=== PATIENT | female | born 1935 | race Caucasian/White ===

== ENCOUNTER 2019-05-28 10:56 | Inpatient (IN) ==
[2019-05-28] MEDS ORDERED: LEVAQUIN 500 MG/D5W 500 MG/100 ML IVPB IV SCH (12:00)
[2019-05-28 12:02] LABS: URINE SOURCE CATH
[2019-05-28 12:05] LABS: BASO# 0.01 X1000 (0.0-0.2); BASO% 0.2 % (0.0-0.8); EOS# 0.03 X1000 (0.0-0.7); EOS% 0.5 % (0.0-10.0); HEMATOCRIT 40.7 % (37.0-47.0); HEMOGLOBIN 12.9 g/dL (12.0-16.0); LYMPH# 0.47 X1000 (1.2-3.4); LYMPH% 7.8 % (20.5-51.1); MCH 33.8 PG (27-31); MCHC 31.7 g/dL (33-37); MCV 106.5 FL (81-99); MONO% 8.3 % (1.7-9.3); MPV 11.1 FL (7.4-10.4); NEUT# 4.99 X1000 (1.4-6.5); NEUT% 83.2 % (42.2-75.2); PLT 183 X1000 (130-400); RBC 3.82 XMIL (4.2-5.4); RDW 13.9 % (11.5-14.5)
[2019-05-28 12:07] LABS: BILIRUBIN URINE NEGATIVE (NEGATIVE); BLOOD URINE NEGATIVE (NEGATIVE); COLOR STRAW; GLUCOSE URINE TRACE mg/dL (NEGATIVE); KETONE URINE NEGATIVE (NEGATIVE); LEUKOCYTES URINE NEGATIVE (NEGATIVE); NITRITE URINE NEGATIVE (NEGATIVE); PH URINE 7.5; PROTEIN URINE TRACE mg/dL (NEGATIVE); SP GRAVITY URINE 1.009; TURBIDITY URINE CLEAR (CLEAR); UROBILINOGEN URINE NORMAL (NORMAL)
[2019-05-28] MEDS ORDERED: TYLENOL PO PRN (12:08)
[2019-05-28] MEDS ORDERED: NS 1,000 ML IV SCH (12:08)
[2019-05-28] MEDS ORDERED: PHENERGAN IV PRN (12:08)
[2019-05-28] MEDS ORDERED: SODIUM CHLORIDE 0.9% INJ PRN (12:08)
[2019-05-28 12:09] LABS: UR EPITHELIAL CELLS <10 /HPF (<10); URINE BACTERIA NEGATIVE /HPF; URINE RBC <10 /HPF (<10); URINE WBC <10 /HPF (<10)
[2019-05-28] MEDS: LEVAQUIN 500 MG/D5W 500 MG/100 ML IVPB IV SCH (12:14)
[2019-05-28 12:19] LABS: CALCIUM 9.7 mg/dL (8.8-10.2); CREATININE 0.9 mg/dL (0.5-0.9); POTASSIUM 4.1 mmol/L (3.5-5.1)
[2019-05-28] MEDS ORDERED: TOBRAMYCIN IV ONE (13:00)
[2019-05-28] MEDS ORDERED: NS IV ONE (13:00)
[2019-05-28] MEDS: NEURONTIN PO SCH ×2 (15:46→21:17)
[2019-05-28] MEDS: PULMICORT INH SCH (19:55)
[2019-05-28] MEDS: FISH OIL CONCENTRATE PO SCH (21:16)
[2019-05-28] MEDS: ELIQUIS PO SCH (21:16)
[2019-05-28] MEDS: NAMENDA PO SCH (21:17)
[2019-05-28] MEDS: MIRALAX PO SCH (21:17)
[2019-05-28] MEDS: RESTASIS 0.05% OPH DROPS BOTH EYES SCH (21:17)
--- NOTE | 2019-05-28 21:42 | HISTORY AND PHYSICAL ---
CHIEF COMPLAINT: Confusion. HISTORY OF PRESENT ILLNESS: Mrs. 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 She presented to the ER with a 2-day history of confusion, disorientation and increased lethargy. Family reported that she had been having increasing dysuria, increased frequency of urination, leakage of urine, and low back pain. She denied any fever, chills, nausea or vomiting. PAST MEDICAL HISTORY: Chronic atrial fibrillation, vascular dementia, hypertension, peripheral neuropathy, lumbar spinal stenosis with neurogenic claudication, gastroesophageal reflux disease. PAST SURGICAL HISTORY: Right hemicolectomy. ALLERGIES: Iodine, morphine. FAMILY HISTORY: Noncontributory. SOCIAL HISTORY: She does not smoke. She does not consume alcoholic beverages. She lives at home with her spouse. MEDICATIONS: Eliquis 2.5 mg b.i.d., atenolol 50 mg daily, Pulmicort 0.5 mg inhalation b.i.d., digoxin 125 mcg daily, Cymbalta 60 mg daily, diltiazem 180 mg daily, fexofenadine 180 mg daily, Toviaz 4 mg daily, Flonase nasal spray, gabapentin 300 mg t.i.d., Namenda 10 mg b.i.d. FAMILY HISTORY: Noncontributory. REVIEW OF SYSTEMS: She denies any recent weight gain or weight loss.HEENT: She is hard of hearing. She wears glasses. CV: No chest pain. Pulmonary: No shortness of breath. GI: No reflux, dysphagia, melena, hematochezia, change in bowel habits or rectal bleeding. Endocrine: No polyuria, no polydipsia. No cold or heat intolerance. Skin: No easy bruisability. : No leakage of urine with coughing or laughing. Neurologic: No migraines or seizures. Psychiatric: She has history of depression. This is a chronically ill-appearing 83-year-old lady who is somewhat sedated. She is oriented to name and place. Temperature 97.8 degrees, pulse 86, respiratory rate 16, BP 159/85. HEENT: Fundi with arteriolar wall thickening. Pupils equal, round, reactive to light. Extraocular eye movements intact. Neck: Supple. No masses, JVD or bruits. CV: Irregularly irregular. Lungs: Clear. Abdomen: Soft. Good bowel sounds. No hepatosplenomegaly. She has suprapubic tenderness to deep palpation. There is some distention of the bladder. Back: No CVA tenderness. Extremities: Without edema. Neuro: She is alert. She is sedated and drowsy but is easily arousable. She is oriented to name and place. Cranial nerves 2-12 intact grossly. She moves all extremities grossly. She has diminished light touch in the distal extremities bilaterally. LABS: Various laboratory studies were obtained. A CBC demonstrated a white count of 6.0, hemoglobin 12.9, hematocrit 40.7, platelet count 183,000. Electrolytes demonstrate sodium 146, potassium 4.1, BUN 16, creatinine 0.9, glucose 157. Urinalysis was grossly unremarkable. ASSESSMENT AND PLAN: 1. Metabolic encephalopathy. I suspect that she has a urinary tract infection. She has had recurrent urinary tract infections in the setting of an overactive bladder for which she takes Toviaz. I will cautiously begin normal saline at 75 mL per hour x1 L. We will begin Levaquin 500 mg IV daily and tobramycin 80 mg x1 dose pending urine and blood cultures x2. 2. Chronic atrial fibrillation. She remains in chronic atrial fibrillation. Heart rate is well controlled on metoprolol. We will continue Eliquis to reduce the risk of stroke. 3. Overactive bladder. We will continue Toviaz 4 mg daily. 4. Chronic low back pain secondary to lumbar spinal stenosis with neurogenic claudication and polyneuropathy. Given her weakness we will consult physical therapy. Given her clinical presentation and comorbid conditions I believe that it is reasonable to admit the patient to [facility] for further evaluation. I anticipate that she will be in the hospital for at least 2 midnights and I will therefore place her in inpatient status. We will continue Eliquis 2.5 mg b.i.d. for DVT prophylaxis. cc: Santos Stern MD
--- NOTE | 2019-05-29 07:30 | Diag Imaging Result Doc PS360 ---
EXAM: CHEST-PORTABLE 05/29/2019 HISTORY: HTN TECHNIQUE: AP portable supine at 0557 COMMENT: There is cardiomegaly. There is minimal interstitial opacity in the lung bases which may indicate pulmonary edema. Considering differences in inspiration and technique this has not changed since 07/16/2018. IMPRESSION: Cardiomegaly. The minimal pulmonary edema. Electronically signed by Ben Echavarria 05/29/2019 7:27 AM
[2019-05-29] MEDS: PULMICORT INH SCH ×2 (08:15→19:26)
[2019-05-29] MEDS ORDERED: TOVIAZ PO SCH (09:00)
[2019-05-29] MEDS ORDERED: TENORMIN PO SCH (09:00)
[2019-05-29] MEDS ORDERED: MIRALAX PO SCH (09:00)
[2019-05-29] MEDS: NAMENDA PO SCH ×2 (09:52→21:01)
[2019-05-29] MEDS: LANOXIN PO SCH (09:52)
[2019-05-29] MEDS: ELIQUIS PO SCH ×2 (09:52→21:01)
[2019-05-29] MEDS: FISH OIL CONCENTRATE PO SCH ×2 (09:52→21:01)
[2019-05-29] MEDS: ALLEGRA PO SCH (09:52)
[2019-05-29] MEDS: CULTURELLE PO SCH (09:52)
[2019-05-29] MEDS: CALTRATE 600 PO SCH (09:52)
[2019-05-29] MEDS: FOLIC ACID PO SCH (09:52)
[2019-05-29] MEDS: PROTONIX PO SCH (09:53)
[2019-05-29] MEDS: CARDIZEM CD PO SCH (09:53)
[2019-05-29] MEDS: CENTRUM SILVER PO SCH (09:53)
[2019-05-29] MEDS: CYMBALTA PO SCH (09:53)
[2019-05-29] MEDS: NEURONTIN PO SCH ×3 (09:53→21:01)
--- NOTE | 2019-05-29 10:30 | PROGRESS NOTE ---
DATE: 05/29/2019 SUBJECTIVE: Mrs. Mathias was admitted to [facility] with a metabolic encephalopathy secondary to suspected underlying urinary tract infection. She seems much more awake and interactive this morning. She is a oriented to name and place. She was complaining about breakfast this morning. She still has some dysuria, but less urinary frequency. She denies any fever, chills, nausea, vomiting, or low back pain. She remains in atrial fibrillation. Heart rate is well controlled on diltiazem. She has had no bleeding complications secondary to the Eliquis. OBJECTIVE: Temperature 98.1 degrees, pulse 89, respiratory rate 16, blood pressure 168/84. CV irregularly irregular. Lungs clear. Abdomen soft nontender with active bowel sounds. Back no CVA tenderness. ASSESSMENT AND PLAN: 1. Metabolic encephalopathy secondary to suspected urinary tract infection. She does have underlying vascular dementia. She is awake and easily arousable. She is oriented to name and place. We will continue IV antibiotics including Levaquin, pending cultures. Hopefully, we can transition her to oral medications soon. 2. Chronic atrial fibrillation. She remains in atrial fibrillation. Heart rate is stable on diltiazem. We will continue Eliquis 2.5 mg b.i.d. to reduce the risk of stroke. cc: Santos Stern MD
[2019-05-29] MEDS: RESTASIS 0.05% OPH DROPS BOTH EYES SCH ×2 (15:41→21:00)
[2019-05-29] MEDS: FLONASE NAS SCH (15:41)
[2019-05-29] MEDS: LEVAQUIN 500 MG/D5W 500 MG/100 ML IVPB IV SCH (15:41)
[2019-05-29] MEDS: MIRALAX PO SCH (21:00)
--- NOTE | 2019-05-30 07:57 | EKG Report ---
Test Performed on : 05/28/2019 11:20:04 AM Test Reason : ED. NO EKG ORDER FOR MUSE Blood Pressure : / mmHG Vent. Rate : 072 BPM Atrial Rate : 113 BPM P-R Int : 000 ms QRS Dur : 086 ms QT Int : 386 ms P-R-T Axes : 000 023 164 degrees QTc Int : 422 ms Atrial fibrillation. Nonspecific ST and T wave abnormality Abnormal ECG When compared with ECG of 19-MAR-2017 15:40, T wave inversion less evident in Lateral leads Unconfirmed Result
[2019-05-30 08:08] VITALS: BP 171/85
[2019-05-30] MEDS: PULMICORT INH SCH (08:43)
[2019-05-30] MEDS ORDERED: TENORMIN PO SCH (09:00)
[2019-05-30] MEDS: FISH OIL CONCENTRATE PO SCH (09:38)
[2019-05-30] MEDS: CARDIZEM CD PO SCH (09:38)
[2019-05-30] MEDS: CENTRUM SILVER PO SCH (09:38)
[2019-05-30] MEDS: NEURONTIN PO SCH (09:39)
[2019-05-30] MEDS: CALTRATE 600 PO SCH (09:39)
[2019-05-30] MEDS: ELIQUIS PO SCH (09:39)
[2019-05-30] MEDS: FOLIC ACID PO SCH (09:39)
[2019-05-30] MEDS: NAMENDA PO SCH (09:39)
[2019-05-30] MEDS: CULTURELLE PO SCH (09:39)
[2019-05-30] MEDS: ALLEGRA PO SCH (09:39)
[2019-05-30] MEDS: LANOXIN PO SCH (09:39)
[2019-05-30] MEDS: CYMBALTA PO SCH (09:39)
[2019-05-30] MEDS: PROTONIX PO SCH (09:39)
[2019-05-30] MEDS: RESTASIS 0.05% OPH DROPS BOTH EYES SCH (09:40)
[2019-05-30] MEDS: FLONASE NAS SCH (09:40)
[2019-05-30] MEDS ORDERED: SEPTRA DS PO SCH (21:00)
--- NOTE | 2019-06-07 19:43 | DISCHARGE SUMMARY ---
ADMISSION DATE: 05/28/2019 DISCHARGE DATE: 05/30/2019 DISCHARGE DIAGNOSES: 1. Metabolic encephalopathy. 2. Vascular dementia. 3. Cystitis. 4. Idiopathic progressive neuropathy. 5. Persistent atrial fibrillation. DISCHARGE INSTRUCTIONS: 1. Return to clinic in 2 weeks to see me, Dr. Sher Stern. 2. Activity as tolerated. 3. Healthy heart diet. MEDICATIONS: Culturelle 1 p.o. b.i.d., Cymbalta 60 mg daily, Eliquis 2.5 mg b.i.d., digoxin 125 mcg daily, Namenda 10 mg b.i.d., atenolol 50 mg b.i.d., folic acid 8 mg daily, MiraLAX 17 g in 8 ounces of water daily, diltiazem 180 mg daily, calcium carbonate 600 mg b.i.d., multivitamin 1 p.o. daily, Restasis 1 drop to each eye b.i.d., gabapentin 300 mg t.i.d. Veramyst nasal spray, 1 spray to each nostril b.i.d., fexofenadine 180 mg daily, Dexilant 60 mg daily, budesonide 0.5 mg 1 puff b.i.d. DISCHARGE PHYSICAL EXAMINATION: This is an elderly frail 83-year-old lady in no apparent distress. She is afebrile, vital signs are stable. Cardiovascular: Irregularly irregular, lungs clear. Abdomen: Soft, nontender with active bowel sounds. HOSPITAL COURSE: Mrs. Ayana Mathias has history of vascular dementia. She was admitted to [facility] with metabolic encephalopathy. She was more confused, disoriented and lethargic. Prior to admission, she had been with complaint of increasing urinary frequency, low back pain and dysuria. We cautiously rehydrated her with normal saline and bolused her with Levaquin and tobramycin pending blood and urine cultures. With fluid resuscitation and broad- spectrum antibiotics, her mental status improved significantly. She was oriented to name, place, and time. She answered questions appropriately. Urine and blood cultures were negative. We felt that she had a cystitis which exacerbated her underlying dementia, leading to the encephalopathy. She will take an additional 10 day course of Levaquin 250 mg daily as an outpatient. She does have a history of chronic atrial fibrillation. She remained in atrial fib throughout her hospitalization. She had no bleeding complications secondary to the Eliquis. Heart rate remained well-controlled on atenolol 50 mg daily and diltiazem 180 mg daily. Having reached maximum hospital benefit, the patient was discharged in stable condition. cc: Santos Stern MD
== END 2019-05-30 12:22 | disposition home or self-care (01) | DRG 689 ==
LOC: ED 10:56 → EDIPHOLD 12:00 → 3N 14:48
PROVIDERS: ADMIT Internal Medicine; ATTEND Internal Medicine

== ENCOUNTER 2019-07-11 15:57 | Inpatient (IN) ==
--- NOTE | 2019-07-11 16:31 | EKG Report ---
Test Performed on : 07/11/2019 3:57:25 PM Test Reason : AMS Blood Pressure : / mmHG Vent. Rate : 104 BPM Atrial Rate : 104 BPM P-R Int : 310 ms QRS Dur : 088 ms QT Int : 260 ms P-R-T Axes : -11 006 173 degrees QTc Int : 341 ms Sinus tachycardia. with 1st degree AV block. Left ventricular hypertrophy with repolarization abnormality Abnormal ECG When compared with ECG of 28-MAY-2019 11:20, (Unconfirmed) Sinus rhythm. has replaced Atrial fibrillation. T wave inversion more evident in Lateral leads QT has shortened Unconfirmed Result
[2019-07-11 16:34] LABS: BASO# 0.03 X1000 (0.0-0.2); BASO% 0.2 % (0.0-0.8); EOS# 0.01 X1000 (0.0-0.7); EOS% 0.1 % (0.0-10.0); HEMATOCRIT 33.4 % (37.0-47.0); HEMOGLOBIN 10.5 g/dL (12.0-16.0); IMM GRAN# 0.05 X1000 (0.0-0.04); IMM GRAN% 0.4 % (0.0-0.5); LYMPH# 0.98 X1000 (1.2-3.4); LYMPH% 7.7 % (20.5-51.1); MCH 32.9 PG (27-31); MCHC 31.4 g/dL (33-37); MCV 104.7 FL (81-99); MONO# 1.66 X1000 (0.11-0.59); MPV 10.6 FL (7.4-10.4); NEUT% 78.6 % (42.2-75.2); PLT 475 X1000 (130-400); RBC 3.19 XMIL (4.2-5.4); RDW 12.8 % (11.5-14.5); WBC 12.73 X1000 (4.8-10.8)
[2019-07-11 16:50] LABS: URINE SOURCE CATH
[2019-07-11 16:52] LABS: BILIRUBIN URINE NEGATIVE (NEGATIVE); BLOOD URINE SMALL (NEGATIVE); COLOR YELLOW; GLUCOSE URINE NEGATIVE (NEGATIVE); KETONE URINE NEGATIVE (NEGATIVE); LEUKOCYTES URINE LARGE (NEGATIVE); NITRITE URINE NEGATIVE (NEGATIVE); PROTEIN URINE 50 mg/dL (NEGATIVE); SP GRAVITY URINE 1.013; TURBIDITY URINE HAZY (CLEAR); UROBILINOGEN URINE 6 mg/dL (NORMAL)
[2019-07-11 16:53] LABS: AGAP 15; ALBUMIN 3.9 g/dL (3.5-5.0); ALKALINE PHOSPHATASE 347 U/L (32-104); BUN 27 mg/dL (8-22); CALCIUM 10.5 mg/dL (8.8-10.2); CHLORIDE 98 mmol/L (98-107); COSMO 287; CREATININE 0.6 mg/dL (0.5-0.9); ESTIMATED GFR > 60; GLUCOSE 152 mg/dL (70-104); GOT 33 U/L (10-30); GPT 32 U/L (10-36); SODIUM 140 mmol/L (136-145); TCO2 27 mmol/L (25-35); TOTAL PROTEIN 8.3 g/dL (6.3-8.3)
[2019-07-11 17:02] LABS: UR AMPHETAMINES QUAL NONE DETECTED (NONE DETECT); UR BARBITUATES QUAL NONE DETECTED (NONE DETECT); UR BENZODIAZEPIN QUAL NONE DETECTED (NONE DETECT); UR CANNABINOIDS QUAL NONE DETECTED (NONE DETECT); UR COCAINE QUAL NONE DETECTED (NONE DETECT); UR METHADONE QUAL NONE DETECTED (NONE DETECT); UR METHAMPHETAMINE QUAL NONE DETECTED (NONE DETECT); UR OPIATES QUAL NONE DETECTED (NONE DETECT); UR OXYCODONE QUAL NONE DETECTED (NONE DETECT); UR PCP QUAL NONE DETECTED (NONE DETECT); UR PROPOXYPHENE QUAL NONE DETECTED (NONE DETECT); UR TCA QUAL NONE DETECTED (NONE DETECT)
--- NOTE | 2019-07-11 17:21 | Diag Imaging Result Doc PS360 ---
EXAM: CT HEAD W/O CONTRAST 07/11/2019 HISTORY: AMS, not moving L side TECHNIQUE: This exam was performed using automated exposure control, adjustment of mA or kV according to patient size, and/or use of iterative reconstruction technique. COMMENT: There is extensive abnormal lucency in the subcortical and periventricular white matter bilaterally. There is no evidence of mass effect bleed or abnormal extra-axial fluid collection. Compared to 01/19/2019 there has been no appreciable change. The calvarium is intact. The visualized paranasal sinuses are clear. IMPRESSION: Chronic ischemic microvascular white matter disease. Electronically signed by Ben Echavarria 07/11/2019 5:19 PM
[2019-07-11 17:22] LABS: UR EPITHELIAL CELLS <10 /HPF (<10); URINE BACTERIA 4+ /HPF; URINE CASTS NONE SEEN; URINE CRYSTALS NONE SEEN; URINE RBC <10 /HPF (<10); URINE WBC TNTC /HPF (<10); URINE YEAST NONE SEEN
--- NOTE | 2019-07-11 17:28 | Diag Imaging Result Doc PS360 ---
EXAM: CHEST-1 VIEW 07/11/2019 HISTORY: AMS TECHNIQUE: AP semiupright at 1724 COMMENT: The inspiration is suboptimal. The heart size is slightly enlarged. Compared to 05/29/2019 there has been no significant change. IMPRESSION: Cardiomegaly. Electronically signed by Ben Echavarria 07/11/2019 5:26 PM
[2019-07-11] MEDS ORDERED: ROCEPHIN 1 GM in NS 50 ML IV ONE (17:40)
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
[2019-07-11] MEDS ORDERED: ZOFRAN IV PRN (19:08)
[2019-07-11 19:14] LABS: INR 1.26; PROTIME 16.5 Seconds (11.0-16.0)
[2019-07-11 19:15] LABS: PTT 37.5 Seconds (22.3-41.8)
[2019-07-11] MEDS ORDERED: NS 1,000 ML IV SCH (19:15)
[2019-07-11] MEDS: ZOSYN 3.375 GM in NS 50 ML IV SCH (19:36)
[2019-07-11] MEDS: ELIQUIS PO SCH (21:18)
[2019-07-11] MEDS: NAMENDA PO SCH (21:18)
[2019-07-11] MEDS: FISH OIL CONCENTRATE PO SCH (21:18)
[2019-07-11] MEDS: PEPCID PO SCH (21:18)
[2019-07-11] MEDS: TENORMIN PO SCH (21:19)
[2019-07-12] MEDS: ZOSYN 3.375 GM in NS 50 ML IV SCH ×4 (00:43→18:15)
[2019-07-12 07:07] LABS: HEMATOCRIT 30.7 % (37.0-47.0); HEMOGLOBIN 9.3 g/dL (12.0-16.0); MCH 32.3 PG (27-31); MCHC 30.3 g/dL (33-37); MCV 106.6 FL (81-99); MPV 10.8 FL (7.4-10.4); RBC 2.88 XMIL (4.2-5.4); WBC 12.25 X1000 (4.8-10.8)
[2019-07-12] MEDS: THERA M PLUS PO SCH ×2 (08:33→12:30)
[2019-07-12] MEDS: TENORMIN PO SCH ×3 (08:33→21:28)
[2019-07-12] MEDS: ALLEGRA PO SCH ×2 (08:33→12:30)
[2019-07-12] MEDS: NAMENDA PO SCH ×3 (08:34→21:28)
[2019-07-12] MEDS: BIOTIN PO SCH ×2 (08:34→12:29)
[2019-07-12] MEDS: PEPCID PO SCH ×3 (08:34→21:28)
[2019-07-12] MEDS: ARICEPT PO SCH ×2 (08:34→12:29)
[2019-07-12] MEDS: MIRALAX PO SCH ×2 (08:34→12:28)
[2019-07-12] MEDS: LANOXIN PO SCH ×2 (08:34→12:30)
[2019-07-12] MEDS: FOLIC ACID PO SCH ×2 (08:35→12:30)
[2019-07-12] MEDS: CULTURELLE PO SCH ×2 (08:35→12:29)
[2019-07-12] MEDS: ELIQUIS PO SCH ×3 (08:35→21:27)
[2019-07-12] MEDS: FISH OIL CONCENTRATE PO SCH ×3 (08:35→21:27)
[2019-07-12] MEDS: CARDIZEM CD PO SCH ×2 (08:35→12:29)
[2019-07-12] MEDS: CALTRATE 600 PO SCH ×2 (08:35→12:29)
[2019-07-12] MEDS ORDERED: NS 1,000 ML IV ONE (08:38)
[2019-07-12 09:05] LABS: AGAP 15; ALBUMIN 3.4 g/dL (3.5-5.0); ALKALINE PHOSPHATASE 306 U/L (32-104); BUN 31 mg/dL (8-22); CALCIUM 10.1 mg/dL (8.8-10.2); CHLORIDE 102 mmol/L (98-107); COSMO 293; CREATININE 0.6 mg/dL (0.5-0.9); ESTIMATED GFR > 60; GLUCOSE 128 mg/dL (70-104); GOT 30 U/L (10-30); GPT 24 U/L (10-36); POTASSIUM 3.7 mmol/L (3.5-5.1); SODIUM 143 mmol/L (136-145); TCO2 26 mmol/L (25-35); TOTAL PROTEIN 7.5 g/dL (6.3-8.3)
[2019-07-12] MEDS: TYLENOL PO PRN ×2 (12:29→18:14)
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
[2019-07-13] MEDS: ZOSYN 3.375 GM in NS 50 ML IV SCH ×3 (00:18→13:35)
[2019-07-13] MEDS: TYLENOL PO PRN (01:40)
[2019-07-13] MEDS: CALTRATE 600 PO SCH (10:26)
[2019-07-13] MEDS: ARICEPT PO SCH (10:26)
[2019-07-13] MEDS: FISH OIL CONCENTRATE PO SCH ×2 (10:26→20:15)
[2019-07-13] MEDS: ELIQUIS PO SCH ×2 (10:26→20:15)
[2019-07-13] MEDS: THERA M PLUS PO SCH (10:26)
[2019-07-13] MEDS: CULTURELLE PO SCH (10:26)
[2019-07-13] MEDS: NAMENDA PO SCH ×2 (10:26→20:16)
[2019-07-13] MEDS: MIRALAX PO SCH (10:26)
[2019-07-13] MEDS: LANOXIN PO SCH (10:26)
[2019-07-13] MEDS: BIOTIN PO SCH (10:26)
[2019-07-13] MEDS: CARDIZEM CD PO SCH (10:27)
[2019-07-13] MEDS: PEPCID PO SCH ×2 (10:27→20:16)
[2019-07-13] MEDS: ALLEGRA PO SCH (10:27)
[2019-07-13] MEDS: TENORMIN PO SCH ×2 (10:27→20:16)
[2019-07-13] MEDS: FOLIC ACID PO SCH (10:27)
[2019-07-13] MEDS ORDERED: MILK OF MAGNESIA PO ONE (13:34)
[2019-07-13] MEDS: ROCEPHIN 1 GM in NS 50 ML IV SCH (18:18)
--- NOTE | 2019-07-13 20:04 | PROGRESS NOTE ---
DATE: 07/13/2019 SUBJECTIVE: Family notes that she is starting to drink a little bit better, although she is not staying awake all day. She is moving her right side a little bit better but has still very little movement of her left side. PHYSICAL EXAM: Temperature 98, pulse 68, respiratory rate 18, BP 138/57.General: Patient is pleasant. She is in no respiratory distress. She does open her eyes and actually seems to answer questions. HEENT: Normocephalic. Neck: Supple. Cardiovascular: Regular rate. Chest: Clear. Abdomen: Soft. Extremities: She moves her right upper and lower without issues. ASSESSMENT: 1. Escherichia coli urinary tract infection, actually resistant to Zosyn, although it is highly sensitive to Rocephin and is extended-spectrum beta-lactamase negative. We are going to switch to Rocephin and stop Zosyn. 2. Sepsis secondary to Escherichia coli urinary tract infection. 3. Metabolic encephalopathy, appears resolved. 4. Recent right hip fracture. 5. Recent cerebrovascular accident with left-sided weakness. 6. Dementia. 7. History of atrial fibrillation. 8. Hyperbilirubinemia. We are going to continue to follow that. Bilirubin actually has gone up slightly from 2.8 to 3.1. We will recheck in the morning and will follow. cc: Raúl Reid MD
[2019-07-14 06:07] LABS: HEMATOCRIT 27.1 % (37.0-47.0); HEMOGLOBIN 8.3 g/dL (12.0-16.0); MCH 31.7 PG (27-31); MCHC 30.6 g/dL (33-37); MCV 103.4 FL (81-99); MPV 11.2 FL (7.4-10.4); RBC 2.62 XMIL (4.2-5.4); RDW 12.6 % (11.5-14.5); WBC 8.61 X1000 (4.8-10.8)
[2019-07-14 06:24] LABS: AGAP 12; ALBUMIN 2.8 g/dL (3.5-5.0); ALKALINE PHOSPHATASE 425 U/L (32-104); BUN 16 mg/dL (8-22); CALCIUM 9.8 mg/dL (8.8-10.2); CHLORIDE 98 mmol/L (98-107); COSMO 270; CREATININE 0.4 mg/dL (0.5-0.9); ESTIMATED GFR > 60; GLUCOSE 115 mg/dL (70-104); GOT 47 U/L (10-30); GPT 45 U/L (10-36); MAGNESIUM 2.1 mg/dL (1.5-2.7); POTASSIUM 3.7 mmol/L (3.5-5.1); SODIUM 134 mmol/L (136-145); TCO2 25 mmol/L (25-35); TOTAL PROTEIN 6.8 g/dL (6.3-8.3)
[2019-07-14] MEDS: MIRALAX PO SCH ×2 (10:16→10:56)
[2019-07-14] MEDS: NAMENDA PO SCH ×3 (10:16→21:17)
[2019-07-14] MEDS: CARDIZEM CD PO SCH ×2 (10:16→10:54)
[2019-07-14] MEDS: BIOTIN PO SCH ×2 (10:16→10:51)
[2019-07-14] MEDS: FOLIC ACID PO SCH ×2 (10:16→10:55)
[2019-07-14] MEDS: ARICEPT PO SCH ×2 (10:17→10:50)
[2019-07-14] MEDS: FISH OIL CONCENTRATE PO SCH ×2 (10:17→10:53)
[2019-07-14] MEDS: CALTRATE 600 PO SCH ×2 (10:17→10:52)
[2019-07-14] MEDS: PEPCID PO SCH ×4 (10:17→21:28)
[2019-07-14] MEDS: THERA M PLUS PO SCH ×2 (10:17→10:56)
[2019-07-14] MEDS: CULTURELLE PO SCH ×2 (10:17→10:54)
[2019-07-14] MEDS: LANOXIN PO SCH ×2 (10:18→10:55)
[2019-07-14] MEDS: TENORMIN PO SCH ×3 (10:18→21:17)
[2019-07-14] MEDS: ALLEGRA PO SCH ×2 (10:18→10:50)
[2019-07-14] MEDS: ELIQUIS PO SCH ×3 (10:18→21:18)
[2019-07-14] MEDS: ROCEPHIN 1 GM in NS 50 ML IV SCH (17:42)
--- NOTE | 2019-07-14 18:48 | PROGRESS NOTE ---
DATE: 07/14/2019 SUBJECTIVE: The patient's family notes that she actually ate yesterday. She seems to be doing better. Color is better. She has no new complaints. PHYSICAL EXAM: Vital signs: Temperature 98.4 degrees, pulse 67, respiratory rate 18, BP 134/44. General: The patient is pleasant. She is in no distress. She does smile when spoken to. HEENT: Normocephalic. Neck: Supple. Cardiovascular: Regular rate. Chest: Clear. Abdomen: Soft. Extremities: Moves all extremities. ASSESSMENT: 1. Escherichia coli urinary tract infection resistant to Zosyn, currently on Rocephin. 2. Metabolic encephalopathy. Appears to have resolved. 3. Leukocytosis. Resolved. 4. Sepsis secondary to urinary tract infection. Resolved. 5. Hyperbilirubinemia. Resolved. 6. Moderate protein-calorie malnutrition. 7. Recent cerebrovascular accident with left-sided weakness. 8. Dementia. PLAN: We are going to continue the patient in the hospital. Continue antibiotics today. Hopefully, she can transition back to rehab tomorrow on Rocephin for a total of 7-day course. cc: Raúl Reid MD
[2019-07-15] MEDS: ELIQUIS PO SCH ×3 (06:47→22:20)
[2019-07-15] MEDS: NAMENDA PO SCH ×3 (06:49→22:20)
[2019-07-15] MEDS: FISH OIL CONCENTRATE PO SCH ×3 (06:49→22:21)
[2019-07-15] MEDS: TENORMIN PO SCH ×2 (13:36→22:20)
[2019-07-15] MEDS: MIRALAX PO SCH (13:36)
[2019-07-15] MEDS: THERA M PLUS PO SCH (13:36)
[2019-07-15] MEDS: PEPCID PO SCH ×2 (13:36→22:20)
[2019-07-15] MEDS: ALLEGRA PO SCH (13:36)
[2019-07-15] MEDS: LANOXIN PO SCH (13:37)
[2019-07-15] MEDS: FOLIC ACID PO SCH (13:37)
[2019-07-15] MEDS: CARDIZEM CD PO SCH (13:39)
[2019-07-15] MEDS: BIOTIN PO SCH (13:39)
[2019-07-15] MEDS: CULTURELLE PO SCH (13:39)
[2019-07-15] MEDS: ARICEPT PO SCH (13:39)
[2019-07-15] MEDS: CALTRATE 600 PO SCH (13:39)
--- NOTE | 2019-07-15 18:54 | PROGRESS NOTE ---
DATE: 07/15/2019 SUBJECTIVE: The family member that is with her today notes that she did not do as well yesterday as she did the day before. Currently, she is awake, alert. She is pleasant. She has a smile. PHYSICAL EXAMINATION: Vital Signs: Temperature 98.9 pulse 76, respiratory rate 18, BP 151/88. General: The patient is in no current distress. HEENT: Normocephalic. Neck: Supple. Cardiovascular: Regular rate. Chest: Clear. Abdomen: Soft. Extremities: She moves her right side well. ASSESSMENT: 1. zallryfg-cuwuyrsj-uclx-lactamase-negative Escherichia coli resistant to Zosyn. We are going to continue Rocephin through the weekend. 2. Metabolic encephalopathy, resolved. 3. Recent right hip fracture, stable. 4. Recent cerebrovascular accident with left-sided weakness. 5. Dementia. 6. Leukocytosis, resolved. 7. Hyperbilirubinemia, resolved. PLAN: We are going to continue her in the hospital. Continue to follow. Further orders as needed. cc: Raúl Reid MD
[2019-07-15] MEDS: ROCEPHIN 1 GM in NS 50 ML IV SCH (19:23)
[2019-07-15] MEDS: DILAUDID IV PRN (22:09)
[2019-07-16] MEDS: DILAUDID IV PRN ×6 (01:22→23:20)
[2019-07-16] MEDS: ALLEGRA PO SCH (11:18)
[2019-07-16] MEDS: ARICEPT PO SCH (11:19)
[2019-07-16] MEDS: BIOTIN PO SCH (11:19)
[2019-07-16] MEDS: CARDIZEM CD PO SCH (11:20)
[2019-07-16] MEDS: CALTRATE 600 PO SCH (11:20)
[2019-07-16] MEDS: ELIQUIS PO SCH ×2 (11:21→21:55)
[2019-07-16] MEDS: CULTURELLE PO SCH (11:21)
[2019-07-16] MEDS: FISH OIL CONCENTRATE PO SCH ×2 (11:22→21:55)
[2019-07-16] MEDS: LANOXIN PO SCH (11:25)
[2019-07-16] MEDS: FOLIC ACID PO SCH (11:25)
[2019-07-16] MEDS: NAMENDA PO SCH ×2 (11:26→21:55)
[2019-07-16] MEDS: PEPCID PO SCH ×2 (11:26→21:56)
[2019-07-16] MEDS: MIRALAX PO SCH (11:26)
[2019-07-16] MEDS: TENORMIN PO SCH ×2 (11:26→21:55)
[2019-07-16] MEDS: THERA M PLUS PO SCH (11:27)
--- NOTE | 2019-07-16 16:43 | PROGRESS NOTE ---
DATE: 07/16/2019 SUBJECTIVE: Patient with no complaints. The family is currently in the room. OBJECTIVE: Temperature: Temperature 97, pulse 100, respiratory 18, and BP 149/80. General: Patient is lying in the bed. She is awake. Eyes are open. She does mumble to verbal stimuli, but seems a little less alert today than she was in the past. For the past 2 days, she would actually respond to verbal stimuli. HEENT: Normocephalic. Neck: Supple. Cardiovascular: Regular rate. Lungs: Chest clear. Positive rhonchi. No wheezing. Abdomen: Soft. Extremities: No edema. Neurologic: She is awake and alert. She actually moved her left hand a little bit today. ASSESSMENT: 1. Escherichia coli urinary tract infection currently on Rocephin. 2. Anemia of chronic disease. 3. Hyperbilirubinemia, resolved. 4. Dementia. 5. Atrial fibrillation. 6. History of cerebrovascular accident with left-sided weakness but does appear to be improving slightly. PLAN: We are going to continue patient in the hospital. She is having difficulty following commands, and following physical therapy instructions. We will continue to follow. Unfortunately, she does have dementia and certainly do not expect this to improve. We did ask the family to be here between 8:00 and 9:00 this morning. Currently, it is 9:30, and they have been unfortunately unable to make it. cc: Raúl Reid MD
[2019-07-16] MEDS: ROCEPHIN 1 GM in NS 50 ML IV SCH (18:21)
[2019-07-17] MEDS: DILAUDID IV PRN ×3 (04:33→13:50)
[2019-07-17 05:43] LABS: HEMATOCRIT 30.8 % (37.0-47.0); HEMOGLOBIN 9.2 g/dL (12.0-16.0); MCH 31.4 PG (27-31); MCHC 29.9 g/dL (33-37); MCV 105.1 FL (81-99); MPV 10.6 FL (7.4-10.4); RBC 2.93 XMIL (4.2-5.4); RDW 12.7 % (11.5-14.5); WBC 7.63 X1000 (4.8-10.8)
[2019-07-17 06:00] LABS: AGAP 15; ALBUMIN 3.1 g/dL (3.5-5.0); ALKALINE PHOSPHATASE 436 U/L (32-104); BUN 20 mg/dL (8-22); CALCIUM 10.4 mg/dL (8.8-10.2); CHLORIDE 107 mmol/L (98-107); COSMO 296; CREATININE 0.4 mg/dL (0.5-0.9); ESTIMATED GFR > 60; GLUCOSE 110 mg/dL (70-104); GOT 35 U/L (10-30); GPT 42 U/L (10-36); MAGNESIUM 2.2 mg/dL (1.5-2.7); POTASSIUM 3.4 mmol/L (3.5-5.1); SODIUM 147 mmol/L (136-145); TCO2 24 mmol/L (25-35); TOTAL PROTEIN 7.3 g/dL (6.3-8.3)
[2019-07-17] MEDS ORDERED: ATIVAN IV ONE (07:37)
[2019-07-17] MEDS ORDERED: BLISTEX MEDICATED BERRY LIP BALM TOP PRN (08:15)
[2019-07-17] MEDS: PEPCID PO SCH (11:55)
[2019-07-17] MEDS: THERA M PLUS PO SCH (11:55)
[2019-07-17] MEDS: TENORMIN PO SCH (11:55)
[2019-07-17] MEDS: ALLEGRA PO SCH (11:55)
[2019-07-17] MEDS: MIRALAX PO SCH (11:56)
[2019-07-17] MEDS: FOLIC ACID PO SCH (11:56)
[2019-07-17] MEDS: LANOXIN PO SCH (11:56)
[2019-07-17] MEDS: FISH OIL CONCENTRATE PO SCH (11:56)
[2019-07-17] MEDS: NAMENDA PO SCH (11:56)
[2019-07-17] MEDS: ARICEPT PO SCH (11:57)
[2019-07-17] MEDS: CARDIZEM CD PO SCH (11:57)
[2019-07-17] MEDS: ELIQUIS PO SCH (11:57)
[2019-07-17] MEDS: BIOTIN PO SCH (11:57)
[2019-07-17] MEDS: CULTURELLE PO SCH (11:57)
[2019-07-17] MEDS: CALTRATE 600 PO SCH (11:57)
[2019-07-17 13:48] VITALS: BP 188/83
--- NOTE | 2019-07-17 20:53 | DISCHARGE SUMMARY ---
ADMISSION DATE: 07/11/2019 DISCHARGE DATE: 07/17/2019 DISCHARGE DIAGNOSIS: 1. Extended spectrum beta lactamase negative Escherichia coli resistant to ,currently on Rocephin. 2. Metabolic encephalopathy secondary to urinary tract infection, improved. 3. Dementia continues to be problematic. 4. Dysphagia secondary to dementia. 5. Leukocytosis, resolved. 6. Hyperbilirubinemia, resolved. 7. Recent hip fracture. 8. Recent cerebrovascular accident with improving left-sided weakness. CONSULTATIONS: Hospice. PROCEDURES: None. BRIEF HOSPITAL COURSE: The patient is an 84-year-old female who presented to the hospital with acute metabolic encephalopathy secondary to her urinary tract infection. She was confused, did not really respond to commands on 1st day of admission. After getting IV fluids, antibiotics, she actually improved and for 2 days had better oral intake. She was awake, alert. She was in no distress. She actually was smiling and would respond to commands. However, over the subsequent time these symptoms worsened. On discharge, she has been moaning. She has been much less active, does not follow commands. Has been refusing to drink. She has been having difficulty swallowing. 35 minutes was spent in total care regarding discussion with the family DNR, hospice care, comfort care versus further aggressive treatment. They declined further aggressive treatment noting that her dementia would not improve and therefore she will be discharged home with hospice and comfort care. cc: Raúl Reid MD
== END 2019-07-17 14:38 | disposition hospice, home (50) | DRG 689 ==
LOC: P.ED 15:57 → P.MEDSURG 15:58
PROVIDERS: ATTEND Family Medicine